=== PATIENT | female | born 1945 | race African-American/Black ===

== ENCOUNTER 2021-01-07 12:20 | Emergency (ER) | payer OTHER ==
[2021-01-07 14:06] VITALS: BMI 29.0
[2021-01-07] MEDS ORDERED: ONDANSETRON 4 MG/2 ML VIAL IVPUSH ONE (14:12)
[2021-01-07] MEDS ORDERED: morphine CARPU-JECT 4 MG/1 ML DISP.SYRIN IVPUSH ONE (14:12)
[2021-01-07] MEDS ORDERED: morphine SULFATE 4 MG/ML VIAL ONE (14:18)
[2021-01-07] MEDS ORDERED: MORPHINE SULFATE 2 MG/ML VIAL ONE (14:18)
[2021-01-07] MEDS ORDERED: ONDANSETRON 4 MG/2 ML VIAL ONE (14:19)
[2021-01-07 16:14] LABS: BASO % 0.3 % (0-2.0); EOS % 0.3 % (0-4.5); HEMATOCRIT 36.3 % (32.4-45.2); HEMOGLOBIN 12.2 GM/dL (10.7-15.3); LYMPH % 6.9 % (8-40); MCH 31.1 pg (25.7-33.7); MCHC 33.6 g/dl (32.0-36.0); MEAN CELL VOLUME 92.7 fl (80-96); MEAN PLT VOLUME 9.2 fl (7.5-11.1); MONO % 3.7 % (3.8-10.2); NEUT % 88.8 % (42.8-82.8); PLATELET COUNT 325 K/MM3 (134-434); RBC 3.91 M/mm3 (3.60-5.2); RDW 14.2 % (11.6-15.6); WHITE BLOOD COUNT 10.9 K/mm3 (4.0-10.0)
[2021-01-07 16:51] LABS: CALCIUM 9.2 mg/dL (8.5-10.1)
[2021-01-07 16:52] LABS: ALBUMIN 3.7 g/dl (3.4-5.0)
[2021-01-07 16:55] LABS: CREATININE 0.9 mg/dL (0.55-1.3)
[2021-01-07 16:56] LABS: BILIRUBIN,TOTAL 0.3 mg/dL (0.2-1); TOT PROT 7.5 g/dl (6.4-8.2)
[2021-01-07 16:57] LABS: BLOOD UREA NITROGEN 12.4 mg/dL (7-18)
[2021-01-07 17:01] LABS: POTASSIUM 6.8 mmol/L (3.5-5.1)
[2021-01-07 17:23] LABS: INR 0.97 (0.83-1.09); PROTHROMBIN TIME (PATIENT) 11.9 SEC (9.7-13.0)
[2021-01-07 17:25] LABS: ACTIVATED PTT 21.3 SECONDS (25.2-36.5)
[2021-01-07 22:28] VITALS: BP 129/63; PULSE 80; TEMP 99.2
== END 2021-01-07 22:29 | disposition short-term general hospital (02) ==
LOC: JER 12:20
PROC: 3E033NZ Introduction of Analgesics, Hypnotics, Sedatives into Peripheral Vein, Percutaneous Approach (ICD-10-PCS; principal; 2021-01-07)
PROC: 3E033GC Introduction of Other Therapeutic Substance into Peripheral Vein, Percutaneous Approach (ICD-10-PCS; 2021-01-07)
DX: S72.342A Displaced spiral fracture of shaft of left femur, initial encounter for closed fracture (principal)
CPT/HCPCS: 36415; 70450-TC; 71045-TC-FY; 72125-TC; 72170-TC-FY; 73552-TC-LT-FY; 73562-TC-LT-FY; 80053; 85025; 85610; 85730; 86850; 86900; 86901; 99285-25; C9803; U0003

== ENCOUNTER 2024-02-05 00:34 | Inpatient (IN) | payer OTHER ==
[2024-02-05] MEDS ORDERED: ACETAMINOPHEN INJECTION 100 ML IVPB ONE (01:34)
[2024-02-05] MEDS ORDERED: ONDANSETRON 4 MG/2 ML VIAL ONE (01:34)
[2024-02-05 02:23] LABS: BASO % 0.3 % (0-2.0); EOS % 1.3 % (0-4.5); HEMOGLOBIN 12.9 GM/dL (10.7-15.3); MCH 31.4 pg (25.7-33.7); MEAN CELL VOLUME 92.2 fl (80-96); MEAN PLT VOLUME 6.9 fl (7.5-11.1); MONO % 5.6 % (3.8-10.2); NEUT % 78.8 % (42.8-82.8); PLATELET COUNT 260 10^3/uL (134-434); RBC 4.12 M/mm3 (3.60-5.2); RDW 14.1 % (11.6-15.6); WHITE BLOOD COUNT 7.4 K/mm3 (4.0-10.0)
[2024-02-05] MEDS: ONDANSETRON 4 MG/2 ML VIAL IVPUSH ONE (02:24)
[2024-02-05] MEDS: ACETAMINOPHEN 1000 MG/100 ML BAG IVPB ONE (02:24)
[2024-02-05 02:39] LABS: POTASSIUM 4.2 mmol/L (3.5-5.1)
[2024-02-05 02:41] LABS: CALCIUM 9.5 mg/dL (8.5-10.1)
[2024-02-05 02:42] LABS: ALBUMIN 3.7 g/dl (3.4-5.0); BLOOD UREA NITROGEN 16.5 mg/dL (7-18)
[2024-02-05 02:46] LABS: TOT PROT 7.5 g/dl (6.4-8.2)
[2024-02-05 02:47] LABS: BILIRUBIN,TOTAL 0.4 mg/dL (0.2-1)
[2024-02-05] MEDS: SODIUM CHLORIDE 0.9% 500 ML INFUS.BAG IV ONE (06:12)
[2024-02-05 08:49] LABS: URINE APPEARANCE HAZY; URINE BILIRUBIN NEGATIVE (NEGATIVE); URINE COLOR STRAW; URINE GLUCOSE (UA) NEGATIVE (NEGATIVE); URINE KETONE TRACE (NEGATIVE)
[2024-02-05 08:50] LABS: PH,URINE 7.5 (5.0-8.0); URINE LEUK ESTERASE 4+ (NEGATIVE); URINE NITRITE NEGATIVE (NEGATIVE); URINE PROTEIN 1+ (NEGATIVE); URINE RBC 58.5 /uL (0-23.9)
[2024-02-05 08:51] LABS: EPI CELLS 13.2 /uL (0-25.1); URINE BACTERIA 19071.1 /uL (0-1359); YEAST NO SEEN (NEGATIVE)
[2024-02-05] MEDS ORDERED: CEFTRIAXONE 1 GM/50 ML BAG ONE (09:39)
[2024-02-05] MEDS: CEFTRIAXONE 1,000 MG in DEXTROSE 5%-WATER - 50 ML IVPB ONE (09:56)
[2024-02-05] MEDS ORDERED: ACETAMINOPHEN 325 MG TABLET (FP) PO PRN (10:10)
[2024-02-05] MEDS: HEPARIN NA (PORCINE) 5,000 UNITS/ML 1ML VIAL SQ SCH (22:16)
[2024-02-05] MEDS: CLOTRIMAZOLE 1% CREAM TP SCH (22:17)
[2024-02-06] MEDS: CARVEDILOL 3.125 MG TABLET (FP) PO SCH (09:30)
[2024-02-06] MEDS: LAMOTRIGINE PO SCH (09:30)
[2024-02-06] MEDS: amLODIPine BESYLATE 5 MG TABLET (FP) PO SCH (09:31)
[2024-02-06] MEDS: CEFTRIAXONE 1 GM in DEXTROSE 5%-WATER - 50 ML IVPB SCH (09:31)
[2024-02-06] MEDS ORDERED: lamoTRIgine 25 MG TABLET PO SCH (10:00)
[2024-02-06 12:29] LABS: HEMATOCRIT 37.3 % (32.4-45.2); MCH 30.3 pg (25.7-33.7); MCHC 32.3 g/dl (32.0-36.0); MEAN CELL VOLUME 93.8 fl (80-96); MEAN PLT VOLUME 7.3 fl (7.5-11.1); PLATELET COUNT 230 10^3/uL (134-434); RBC 3.97 M/mm3 (3.60-5.2); RDW 14.5 % (11.6-15.6); WHITE BLOOD COUNT 3.8 K/mm3 (4.0-10.0)
[2024-02-06 12:50] LABS: POTASSIUM 3.8 mmol/L (3.5-5.1)
[2024-02-06 12:54] LABS: ALBUMIN 3.2 g/dl (3.4-5.0); BLOOD UREA NITROGEN 12.6 mg/dL (7-18); CALCIUM 8.8 mg/dL (8.5-10.1)
[2024-02-06 12:59] LABS: BILIRUBIN,TOTAL 0.2 mg/dL (0.2-1); TOT PROT 6.8 g/dl (6.4-8.2)
[2024-02-06 14:34] VITALS: BMI 21.9
[2024-02-06] MEDS: SENNOSIDES 8.6MG TABLET (FP) PO SCH (21:22)
[2024-02-08 07:24] VITALS: RESP 18
[2024-02-09] MEDS: CEFUROXIME AXETIL 500 MG TABLET PO SCH (11:29)
[2024-02-10 08:27] LABS: BASO % 0.8 % (0-2.0); EOS % 9.9 % (0-4.5); HEMATOCRIT 37.7 % (32.4-45.2); HEMOGLOBIN 12.5 GM/dL (10.7-15.3); LYMPH % 52.3 % (8-40); MCH 31.1 pg (25.7-33.7); MEAN CELL VOLUME 94.1 fl (80-96); MEAN PLT VOLUME 7.6 fl (7.5-11.1); MONO % 8.1 % (3.8-10.2); NEUT % 28.9 % (42.8-82.8); PLATELET COUNT 214 10^3/uL (134-434); RBC 4.01 M/mm3 (3.60-5.2); RDW 14.3 % (11.6-15.6); WHITE BLOOD COUNT 4.9 K/mm3 (4.0-10.0)
[2024-02-10 15:14] VITALS: BP 116/68; PULSE 100; TEMP 98.8
== END 2024-02-10 14:50 | DRG 690 ==
LOC: JER 00:34 → JERBED 07:59 → OBSVTOIN 07:59 → J8W 10:12
PROVIDERS: ADMIT Family Medicine; ATTEND Family Medicine
DX: N39.0 Urinary tract infection, site not specified (principal); J21.0 Acute bronchiolitis due to respiratory syncytial virus; I69.354 Hemiplegia and hemiparesis following cerebral infarction affecting left non-dominant side; F03.90 Unspecified dementia, unspecified severity, without behavioral disturbance, psychotic disturbance, mood disturbance, and anxiety; I10 Essential (primary) hypertension; E78.5 Hyperlipidemia, unspecified; B96.1 Klebsiella pneumoniae [K. pneumoniae] as the cause of diseases classified elsewhere
CPT/HCPCS: 0241U-QW; 36415; 70450-TC; 71045-TC-FY; 74177-TC; 80053; 80061; 81003; 83036; 83605; 83690; 84439; 84443; 84484; 85025; 85027; 87040; 87086; 87186; 87635; 93005; 93010; 97116-GP; 99285-25; J0131; J1644; Q9967

== ENCOUNTER 2024-12-18 20:26 | Emergency (ER) | payer OTHER ==
[2024-12-18 21:10] VITALS: TEMP 98.1; BMI 20.1
[2024-12-18 22:26] LABS: BASO % 0.3 % (0-2.0); EOS % 2.2 % (0-4.5); HEMATOCRIT 38.1 % (32.4-45.2); HEMOGLOBIN 12.7 GM/dL (10.7-15.3); LYMPH % 17.6 % (8-40); MCH 30.5 pg (25.7-33.7); MCHC 33.4 g/dl (32.0-36.0); MEAN CELL VOLUME 91.2 fl (80-96); MEAN PLT VOLUME 6.8 fl (7.5-11.1); MONO % 6.2 % (3.8-10.2); NEUT % 73.7 % (42.8-82.8); PLATELET COUNT 278 10^3/uL (134-434); RBC 4.17 M/mm3 (3.60-5.2); RDW 13.6 % (11.6-15.6); WHITE BLOOD COUNT 6.2 K/mm3 (4.0-10.0)
[2024-12-18 22:46] LABS: POTASSIUM 4.5 mmol/L (3.5-5.1)
[2024-12-18 22:48] LABS: BLOOD UREA NITROGEN 15.9 mg/dL (7-18); CALCIUM 9.3 mg/dL (8.5-10.1)
[2024-12-18 22:49] LABS: ALBUMIN 3.6 g/dl (3.4-5.0)
[2024-12-18 22:52] LABS: CREATININE 1.2 mg/dL (0.55-1.3)
[2024-12-18 22:53] LABS: BILIRUBIN,TOTAL 0.1 mg/dL (0.2-1); TOT PROT 7.2 g/dl (6.4-8.2)
[2024-12-19 01:49] LABS: PH,URINE 6.5 (5.0-8.0); URINE APPEARANCE TURBID; URINE BILIRUBIN NEGATIVE (NEGATIVE); URINE COLOR YELLOW; URINE GLUCOSE (UA) NEGATIVE (NEGATIVE); URINE KETONE NEGATIVE (NEGATIVE); URINE LEUK ESTERASE 3+ (NEGATIVE); URINE NITRITE NEGATIVE (NEGATIVE); URINE PROTEIN 1+ (NEGATIVE); URINE UROBILINOGEN 0.2 mg/dL (0.2-1.0)
[2024-12-19] MEDS ORDERED: CEPHALEXIN MONOHYDRATE 500 MG CAPSULE (UD) ONE (02:39)
[2024-12-19] MEDS: CEPHALEXIN MONOHYDRATE 500 MG CAPSULE (UD) PO ONE (02:42)
[2024-12-19 03:27] VITALS: BP 140/57; PULSE 68; RESP 16
[2024-12-19 04:26] LABS: HYALINE CASTS 0.82 /uL (0-3.1); URINE BACTERIA 5046.9 /uL (0-1359); URINE RBC 56.5 /uL (0-23.9); URINE WBC 5208.9 /uL (0-25.8)
== END 2024-12-19 03:28 | disposition home or self-care (01) ==
LOC: JER 20:26
DX: N39.0 Urinary tract infection, site not specified (principal); G40.909 Epilepsy, unspecified, not intractable, without status epilepticus; R07.0 Pain in throat; Z20.822 Contact with and (suspected) exposure to COVID-19
CPT/HCPCS: 0241U-QW; 36415; 70450-TC; 71045-TC-FY; 80053; 80175; 81003; 83735; 84484; 85025; 87086; 87186; 93005; 93010; 99285-25